=== PATIENT | female | born 1940 | race Caucasian/White ===

== ENCOUNTER → 2017-08-21 | Outpatient (CLI) | payer MEDICARE ==
[~2017-08-21] MED LIST: COQ-10100 MG PO; DIABETES HEALT1 EACH PO; GLUCOSAMINE CO1 EACH PO; HYDROCHLOROTH12.5 MG PO; LEVOTHYROXINE50 MCG PO; LOSARTAN POTASS50 MG PO; METFORMIN HCL500 MG PO; VITAMIN B-12500 MCG PO
== END ==
LOC: MAMMO 08:43
PROVIDERS: ATTEND Internal Medicine
DX: Z12.31 Encounter for screening mammogram for malignant neoplasm of breast (principal)
CPT/HCPCS: 77067

== ENCOUNTER 2018-01-18 13:54 | Outpatient (RCR) | payer MEDICARE | END 2018-02-16 | LOC: OT 13:54 | PROVIDERS: ATTEND Plastic Surgery | DX: M18.11 Unilateral primary osteoarthritis of first carpometacarpal joint, right hand (principal); M25.541 Pain in joints of right hand | CPT/HCPCS: G8987; G8988; G8989; L3913 ==

== ENCOUNTER → 2018-08-30 | Outpatient (CLI) | payer MEDICARE | LOC: MAMMO 12:22 | PROVIDERS: ATTEND Internal Medicine | DX: Z12.31 Encounter for screening mammogram for malignant neoplasm of breast (principal) | CPT/HCPCS: 77067 ==

== ENCOUNTER → 2019-09-05 | Outpatient (CLI) | payer MEDICARE | LOC: MAMMO 09:05 | PROVIDERS: ATTEND Obstetrics & Gynecology | DX: Z12.31 Encounter for screening mammogram for malignant neoplasm of breast (principal) | CPT/HCPCS: 77067 ==

== ENCOUNTER 2020-02-24 13:13 | Emergency (ER) | payer MEDICARE ==
[~2020-02-24] VITALS: Ht 160 cm; Wt 67.6 kg
[2020-02-24 15:18] LABS: BILIRUBIN,URINE NEGATIVE (NEGATIVE); CLARITY,URINE CLEAR (CLEAR); COLOR,URINE YELLOW (YELLOW); KETONES,URINE NEGATIVE (NEGATIVE); LEUKOCYTE ESTERASE ,URINE SMALL (NEGATIVE); NITRITE,URINE NEGATIVE (NEGATIVE); PROTEIN,URINE DIPSTICK NEGATIVE (NEGATIVE); URINE UROBILINOGEN 0.2 mg/dL (0.2 - 1)
[2020-02-24 15:23] LABS: RBC,URINE 0-5 /HPF (0-5)
[2020-02-24 15:24] LABS: MUCUS,URINE FEW (RARE)
[2020-02-24 16:42] VITALS: BP 110/65
== END 2020-02-24 16:40 | disposition home or self-care (01) ==
LOC: ER 13:33
DX: R30.0 Dysuria (principal); R10.30 Lower abdominal pain, unspecified; R11.2 Nausea with vomiting, unspecified; R53.1 Weakness
CPT/HCPCS: 74176; 81001; 99283

== ENCOUNTER → 2020-09-02 | Outpatient (CLI) | payer MEDICARE | LOC: MAMMO 08:14 | PROVIDERS: ATTEND Family Medicine | DX: Z12.31 Encounter for screening mammogram for malignant neoplasm of breast (principal) | CPT/HCPCS: 77067 ==

== ENCOUNTER → 2021-09-02 | Outpatient (CLI) | payer MEDICARE | LOC: MAMMO 09:32 | PROVIDERS: ATTEND Family Medicine | DX: Z12.31 Encounter for screening mammogram for malignant neoplasm of breast (principal) | CPT/HCPCS: 77067 ==